=== PATIENT | female | born 1930 | race Caucasian/White ===

== ENCOUNTER 2016-09-16 01:30 | Inpatient (IN) | payer MEDICARE, BC ==
[~2016-09-16 01:30] MED LIST: ATORVASTATIN CA10 MG PO; CALCIUM OYSTER500 MG PO; ISOSORBIDE MONO30 M4 PO; KLOR-CON M1010 ME1 PO; LANTUS100 UNITS/ SC; LASIX20 M1 PO; MULTI-VITAMIN1 EAC1 PO; NITROSTAT0.4 MG SL; NOVOLOG100 UNITS/ SC; OMEPRAZOLE20 M2 PO; PRINIVIL20 M1 PO; RANEXA500 MG PO; TYLENOL325 MG PO; ZEBETA10 MG PO; ZYLOPRIM100 M1 PO
[2016-09-16] MEDS ORDERED: ELIQUIS2.5 M1 PO (03:17)
[2016-09-16] MEDS ORDERED: NITROGLYCERIN0.4 M2 SL (03:21)
[2016-09-16 11:22] LABS: BASO % 0.3 % (0-2); EOSINOPHIL ABSOLUTE COUNT 0.1 tho/cmm (0.0-0.7); HCT-HEMATOCRIT 41.4 % (34.0-49.0); HGB-HEMOGLOBIN 13.7 gm/dl (12.0-15.5); IMMATURE GRANULOCYTES ABSOLUTE 0.01 tho/cmm (0-0.03); IMMATURE GRANULOCYTES PERCENT 0.2 % (0-0.3); LYMPH % 26.8 % (20-45); LYMPH ABSOLUTE COUNT 1.6 tho/cmm (0.8-4.5); MCH (MEAN CORPUSCULAR HGB) 30.3 pg (28.0-32.0); MCHC MEAN CORPUSCULAR HGB CONC 33.1 % (32.0-36.0); MCV (MEAN CELL VOLUME) 91.6 fl (82.0-96.0); MEAN PLATELET VOLUME 10.4 cmc (9.4-12.4); MONO % 6.2 % (0-12); MONOCYTE ABSOLUTE COUNT 0.4 tho/cmm (0.0-1.2); NEUTROPHIL ABSOLUTE COUNT 3.9 tho/cmm (1.6-8.0); NEUTROPHIL-AUTOMATED 3.9 tho/cmm (1.6-8.0); NEUTROPHILS % 65.5 % (40-80); PLATELET COUNT 196 tho/cmm (150-450); RED BLOOD COUNT 4.52 mil/cmm (4.00-5.20)
[2016-09-16 11:43] LABS: ALBUMIN 3.5 g/dl (3.5-5.0); ALKALINE PHOSPHATASE 75 U/L (33-138); ALT/SGPT 19 U/L (12-78); ANION GAP 11 mmol/L (0-20); AST/SGOT 20 U/L (10-40); BILIRUBIN,TOTAL 0.4 mg/dl (0-1.5); BLOOD UREA NITROGEN 18 mg/dl (6-24); CARBON DIOXIDE-VENOUS 27 mmol/L (22-32); CHLORIDE 108 mmol/l (96-110); CREATININE 1.19 mg/dl (0.50-1.10); GLUCOSE 133 mg/dL (70-110); POTASSIUM 4.4 mmol/L (3.7-5.1); SODIUM 142 mmol/L (135-145); eGFR VALUE FOR BLACK 49 mL/Min
[2016-09-16 11:47] LABS: TSH-THYROID STIMULATING HORM. 2.19 uIU/ml (0.40-3.80)
[2016-09-16 12:37] LABS: ESR-ERYTHROCYTE SED RATE >140 mm/hr (0-30)
[2016-09-16] MEDS ORDERED: ASPIR 8181 M1 PO (12:39)
[2016-09-17] MEDS ORDERED: PRAVACHOL20 M1 PO (12:38)
[2016-09-18 06:12] LABS: ANION GAP 10 mmol/L (0-20); BLOOD UREA NITROGEN 20 mg/dl (6-24); CALCIUM 8.8 mg/dl (8.5-10.5); CARBON DIOXIDE-VENOUS 27 mmol/L (22-32); CHLORIDE 106 mmol/l (96-110); CREATININE 1.13 mg/dl (0.50-1.10); GLUCOSE 191 mg/dL (70-110); POTASSIUM 4.2 mmol/L (3.7-5.1); SODIUM 139 mmol/L (135-145); eGFR VALUE FOR BLACK 52 mL/Min
[2016-09-18] MEDS ORDERED: TYLENOL325 M2 PO (12:40)
[2016-09-18] MEDS ORDERED: SENOKOT-S TABL1 EACH PO (12:48)
[2016-09-18] MEDS ORDERED: MIRALAX17 G2 PO (12:48)
== END 2016-09-18 13:14 | DRG 65 ==
LOC: 5EB 01:30
PROVIDERS: Internal Medicine; Physician Assistant; Psychiatry & Neurology Neurology; ADMIT Internal Medicine
DX: I63.9 Cerebral infarction, unspecified (principal); I69.951 Hemiplegia and hemiparesis following unspecified cerebrovascular disease affecting right dominant side; I48.91 Unspecified atrial fibrillation; E78.5 Hyperlipidemia, unspecified; I70.0 Atherosclerosis of aorta; I12.9 Hypertensive chronic kidney disease with stage 1 through stage 4 chronic kidney disease, or unspecified chronic kidney disease; N18.3 Chronic kidney disease, stage 3 (moderate); E11.9 Type 2 diabetes mellitus without complications; M10.9 Gout, unspecified; I25.10 Atherosclerotic heart disease of native coronary artery without angina pectoris; Z66 Do not resuscitate; Z95.2 Presence of prosthetic heart valve; Z79.01 Long term (current) use of anticoagulants; Z79.4 Long term (current) use of insulin
CPT/HCPCS: C8929; J1815